=== PATIENT | female | born 2005 | race Caucasian/White ===

== ENCOUNTER 2024-02-01 08:03 | Day surgery (SDC) | payer OTHER, SELFPAY ==
[2024-02-01] VITALS (12 sets, daily range): BP systolic 104–127; BP diastolic 71–86; PULSE 60–84; RESP 14–18; TEMP 36.4–36.8; O2SAT 97–100; BMI 26.3
[2024-02-01 08:31] LABS: Ur HCG Qualitative* Negative (Negative)
[2024-02-01] MEDS: SODIUM CHLORIDE 0.9 % (FLUSH) 10 ML SYRINGE IVF (08:59)
[2024-02-01] MEDS: LACTATED RINGERS 1000 ML 1,000 ML 100 ML IV (08:59)
[2024-02-01] MEDS: OXYMETAZOLINE 0.05% NASAL SPRAY 2 SPRAY NOSTRIL-B (09:44)
[2024-02-01] MEDS: COCAINE HCL 4 % 4 ML SOLUTION NOSTRIL-B (09:57)
[2024-02-01] MEDS: BUPIVACAINE 0.5%/EPINEPHRINE 0.9 MG (30.9 ML) INJECTION (10:02)
--- NOTE | 2024-02-01 10:02 | W.ANESCHARGE ---
Anesthesia Charges Start Date/Time Anesthesia Start Date: 02/01/24 Anesthesia Start Time: 09:46 Stop Date/Time Anesthesia Stop Date: 02/01/24 Anesthesia Stop Time: 10:37
[2024-02-01] MEDS: MUPIROCIN 1 GM PACKET 1 APPLIC TOPICAL (10:13)
[2024-02-01] MEDS: AYR SALINE NASAL GEL 1 APPLIC NOSTRIL-B (10:17)
--- NOTE | 2024-02-01 10:21 | W.PM.ENTPROC ---
Procedure Note Date of procedure: 02/01/24 Procedure: Preoperative diagnosis nasal obstruction, nasal headache, deviated septum, inferior turbinate hypertrophy, left middle turbinate dandre bullosa, adenoid hypertrophy Postprocedure diagnosis same Procedure is nasal septoplasty, adenoidectomy, submucous partial resection bilateral inferior turbinates, endoscopic partial resection left middle turbinate dandre bullosa Under general trach anesthesia patient was prepped and draped in usual fashion. The [place] mouth gag was inserted the tongue retracted forward. No submucous cleft was noted. The adenoid pad was enlarged and was removed with suction cautery. After regarding and gloving the nose was decongested and injected. He right hemitransfixion incision was made in the left anterior tunnel created. There was a large amount of scarring and this was quite tedious. A vertical incision was made through the cartilage and a right posterior tunnel created as well as a right posterior tunnel. The right were deflected portions of septal bone resected a large piece trimmed returned to the intraseptal space. A stab incision was made in the anterior of the right inferior turbinate a tunnel created with a Leslye dissector. A conservative anterior submucous resection was performed. The Coblation was then used to cauterize as well as intramurally cauterize the inferior 10%. This was repeated on the opposite side the left in an identical fashion. The left middle turbinate was a easily visualized. Incision was made inferolaterally up to the hollow portion. This was then crushed with the [place] forceps. The hemitransfixion was closed with 2 4-0 chromic sutures and silastic stents secured with 3-0 nylon. Merocel packing coated in Bactroban was placed. The patient procedure was taken recovery in satisfactory condition blood loss less than 20 mL. Surgeon: Umberto Vyas MD
--- NOTE | 2024-02-01 10:35 | W.ANESCHARGE ---
Anesthesia Charges Start Date/Time Anesthesia Start Date: 02/01/24 Anesthesia Start Time: 09:46 Stop Date/Time Anesthesia Stop Date: 02/01/24 Anesthesia Stop Time: 10:37
--- NOTE | 2024-02-01 11:14 | SUR.OPER ---
PATIENT QUESTIONS ANSWERED SATISFACTORILY PREOPERATIVELY. PATIENT BROUGHT TO OR #1 PER CART. Patient positioned supine on OR #1 bed. Perioperative team wrapped arms bilaterally at patient side with drawsheet. ? Final approval of positioning by surgeon.
[2024-02-01] MEDS: ACETAMINOPHEN 325 MG TABLET PO (11:21)
[2024-02-01] MEDS: IBUPROFEN 200 MG TABLET PO (11:21)
== END 2024-02-01 12:13 | disposition home or self-care (01) ==
LOC: OR 08:04
PROVIDERS: Visit Provider Otolaryngology
PROC: (CPT 31231; principal; 2024-02-01 09:45)
DX: J34.2 Deviated nasal septum (principal); J34.3 Hypertrophy of nasal turbinates; J35.2 Hypertrophy of adenoids; R51.9 Headache, unspecified; J34.89 Other specified disorders of nose and nasal sinuses
CPT/HCPCS: 30520; 30140; 42831; 31240; 00160; 81025; A9270; J0330; J1100; J2405; J2704; J3010; J7120